=== PATIENT | female | born 1935 | race Caucasian/White ===

== ENCOUNTER 2024-10-25 11:31 | Day surgery (SDC) | payer OTHER ==
[2024-10-17 16:02] VITALS: BMI 17.9
[2024-10-25 12:50] VITALS: TEMP 97.7
[2024-10-25 12:52] VITALS: BP 120/66; PULSE 81; RESP 19
== END 2024-10-25 12:40 | disposition home or self-care (01) ==
LOC: FASU-ENDO 11:31
PROVIDERS: ATTEND Internal Medicine Gastroenterology
PROC: 0DB68ZX Excision of Stomach, Via Natural or Artificial Opening Endoscopic, Diagnostic (ICD-10-PCS; principal; 2024-10-25 11:50)
DX: K29.50 Unspecified chronic gastritis without bleeding (principal); K20.90 Esophagitis, unspecified without bleeding; K44.9 Diaphragmatic hernia without obstruction or gangrene; K31.7 Polyp of stomach and duodenum
CPT/HCPCS: 88305-TC; 88342-TC